=== PATIENT | female | born 1945 | race Caucasian/White ===

== ENCOUNTER 2019-04-19 06:15 | Inpatient (IN) | payer OTHER ==
[2019-04-06 13:35] LABS: HEMATOCRIT 43.2 % (37.0-47.0); HEMOGLOBIN 14.4 gm/dL (12.0-15.0); MCH 31.7 pg (26.0-34.0); MCHC 33.3 g/dL (28.0-37.0); RBC 4.55 mil/uL (4.20-5.00); RDW 13.2 % (10.5-14.5); WBC 6.5 thou/uL (4.0-11.0)
[2019-04-06 13:37] LABS: URINE BILIRUBIN NEGATIVE (Negative); URINE BLOOD NEGATIVE (Negative); URINE CLARITY CLEAR; URINE COLOR YELLOW; URINE GLUCOSE-RANDOM* NEGATIVE (Negative); URINE KETONES NEGATIVE (Negative); URINE NITRITE-REFLEX NEGATIVE (Negative); URINE PROTEIN (DIPSTICK) NEGATIVE (Negative); URINE SPECIFIC GRAVITY 1.015 (1.005-1.035); URINE UROBILINOGEN 0.2 E.U./dl (0.2-1.0)
[2019-04-06 13:38] LABS: URINE LEUKOCYTES-REFLEX 1+ (Negative)
[2019-04-06 13:43] LABS: ALBUMIN 3.8 g/dL (3.4-5.0); CALCIUM 9.1 mg/dL (8.5-10.1); CREATININE 0.7 mg/dL (0.6-1.0); POTASSIUM 4.1 mmol/L (3.5-5.1)
[2019-04-06 13:49] LABS: PROTIME 9.9 Seconds (9.3-11.4)
[2019-04-06 13:50] LABS: SQUAMOUS 0-3 Few /LPF (0-3)
[2019-04-06 13:51] LABS: URINE WBC-REFLEX 0-5 Rare /HPF (0-5)
[2019-04-06 13:52] LABS: BACTERIA-REFLEX 1-9 Few /HPF (None Seen); CASTS None Seen /LPF (None Seen); CRYSTALS None Seen /LPF (None Seen); URINE RBC 0-2 Rare /HPF (0-2)
--- NOTE | 2019-04-08 17:09 | EKG ---
[address] [address] ELECTROCARDIOGRAM REPORT Name: JASON COTTO Room #: PRE IN [facility]#: [id number] Admission: Attend Phys: Riley Thompson MD Discharge: Date of : 47 Report #: [id number] THIS REPORT FOR: //name// [facility] Test Date: 2019-04-06 Test Time: 12:59:03 Pat Name: JASON COTTO Department: Room: Gender: F Deputy Court: Nathen DUMNOT : 1945 Requested By: Riley Thompson Order Number: [id number] MD: Umang Bryant Measurements Intervals [place] Rate: 68 P: 66 ND: 157 QRS: 39 QRSD: 88 T: 47 QT: 383 QTc: 408 Interpretive Statements Sinus rhythm No previous ECG available for comparison Electronically Signed On 04-08-2019 17:09:10 [employer]PERVIS[employer] by Umang Bryant [email or web address] <ELECTRONICALLY SIGNED> By: Umang Bryant MD 04/08/19 1709 [id number] [id number] Umang Bryant MD /LEXX
[~2019-04-19] VITALS: Ht 154.9 cm; Wt 70.3 kg
[2019-04-19] VITALS (9 sets, daily range): BP systolic 114–145; BP diastolic 52–80
--- NOTE | ~2019-04-19 | O ---
[facility] [place] [address] OPERATIVE REPORT Name: JASON COTTO Room #: 444-P [facility] IN M.R.#: [id number] Admission: 04/19/19 Attend Phys: Riley Thompson MD Discharge: Date of : 47 Report #: [id number] THIS REPORT FOR: //name// CC: Andrew Thompson DATE OF SERVICE: 04/19/2019 PREOPERATIVE DIAGNOSIS: Left hip osteoarthritis. POSTOPERATIVE DIAGNOSIS: Left hip osteoarthritis. PROCEDURE: Left total hip arthroplasty. SURGEON: Riley Thompson MD. EMERGENCY MANAGEMENT SYSTEM DIRECTOR: Natalie Tavarez PA-C. INDICATIONS FOR EMERGENCY MANAGEMENT SYSTEM DIRECTOR: Throughout the case, extensive retraction and manipulation of the hip including dislocation and reduction was required. This was afforded to me by my children's nursery assistant. ANESTHESIA: General. IMPLANTS: [employer]hew size 11 high offset Synergy press fit stem, a size 50 R3 acetabular cup with 1 acetabular screw and a size 32, -3 cobalt chrome head. ESTIMATED BLOOD LOSS: 100 mL. COMPLICATIONS: None. SPECIMENS: None. CONDITION UPON LEAVING THE OPERATING ROOM: Stable. INDICATIONS FOR PROCEDURE: The patient is a 74-year-old female with left hip osteoarthritis. She had failed conservative measures for this and after discussion with her, she elected for left total hip arthroplasty. DESCRIPTION OF PROCEDURE: Risks, benefits, alternatives, complications were discussed in detail with the patient including but not limited to risk of anesthesia, risk of damage to nerves, arteries, blood vessels, risk for infection, bleeding, risk for continued hip pain, leg length discrepancy, instability and need for reoperation. Informed consent was obtained from the patient. Left hip was appropriately marked in the preoperative holding area. [facility] [address] [place] [address] OPERATIVE REPORT Name: JASON COTTO Tashia Room #: 444-P ADM IN M.R.#: [id number] Admission: 04/19/19 Attend Phys: Riley Thompson MD Discharge: Date of : 47 Report #: [id number] Ancef was given for preoperative antibiotics. She was brought to the operating room and placed in supine position on operating room table. General anesthesia was induced without complication. She was then placed in the right lateral decubitus position with left hip uppermost. Left hip and lower extremity were prepped and draped in normal sterile fashion. Timeout was performed, properly identifying the patient and procedure as well as the instrumentation and implants. All in the operating room were in agreement. Standard posterior approach to the left hip was made with 10 blade through the skin. Dissection was taken down to the fascia with Bovie cautery. Benitez elevator was used to clean off the fascia. Fresh 10 blade was used to make a fascial incision. This was taken proximally and distally with curved Ramírez scissor. Charnley retractor was placed. Trochanteric bursa was taken down with Bovie cautery. Piriformis tendon was identified, tagged and taken down with Bovie cautery. Capsulotomy was made and capsule ends were tagged for later repair. Hip was dislocated. There was extensive osteoarthritic change of the femoral head. Femoral neck cut was made 1 cm proximal to lesser trochanter based on preoperative templating. Femoral head was removed. Deep acetabular retractors were placed. Labrum was removed sharply. Pulvinar was removed with Bovie cautery. Acetabulum was then sequentially reamed up to a size 50, at which point there was excellent bleeding cancellous bone. A size 49 trial cup was placed, found to have a good fit. A final size 50 R3 acetabular cup was then placed and seated. One acetabular screw was placed for backup fixation and a polyethylene liner for 32 head was placed. Attention was then turned to the femur. This was reamed and broached up to a size 11, at which point the size 11 broach was stable. It was trialed with a high offset neck and a 32, +0 head. Hip was reduced, taken through range of motion, found to be stable, found to be somewhat long on the left compared to the right. It was felt we could make up for this with the final implant. Hip was dislocated. The broach was removed and final size 11 high offset Synergy press fit stem was placed and seated. This was then trialed with a 32, -3 head. Hip was reduced, taken through range of motion, found to be stable, found to have equal leg lengths. Hip was dislocated one last time and a final size 32, -3 cobalt chrome head was placed. Hip was reduced, taken through range of motion, found to be stable, found to have equal leg length, placed deep in the joint. Capsule and piriformis were repaired with 0 FiberWire ____ postoperatively. By: [id number] Riley Thompson MD /nt
[~2019-04-19 06:15] MED LIST: ADVIL200 M1 PO; CALCIUM CARBON600 MG PO; CENTRUM SILVER1 EAC4 PO; COZAAR 25 MG TA25 M1 PO; FIBER500 MG PO; FOSAMAX 70 MG T70 MG PO
--- NOTE | 2019-04-19 14:45 | NUR ---
INITIAL ASSESSMENT: Pt evaluated for d/c planning needs. Reviewed chart and spoke with nurse, PT and pt. Pt is alert and oriented. Pt states she lives alone in house and was independent with ADL's prior to admission to the hospital. Pt has walker, CPAP and stool riser at home. Pt has not had home health in the past. Pt plans on returning home on d/c from hospital. Pt's sister will stay with her on d/c. Pt has outpatient PT arranged at [facility] in [place]. Will remain available to assist as needed.
--- NOTE | 2019-04-19 20:01 | NUR ---
Pt came to unit from PACU approx 1325. Dressing on left hip c/d/i. Pain controlled. IVF started. IV antibiotic infused. Pt able to work with physical therapy and go the chair. Pt able to ambulate with gait-belt and walker to the toilet. Came to unit with 2L O2 but RT dicontinued O2. Call light within reach. Fall precautions in place. Report given to shakir SELLERS.
[2019-04-20 03:20] VITALS: BP 110/57
--- NOTE | 2019-04-20 04:50 | NUR ---
ASSUMED PT CARE AT 1900. PT REPORTS MINIMAL PAIN, PAIN MEDS GIVEN. LEFT HIP DRESSING DRY AND INTACT WITH ICE PACK IN PLACE. UP TO TOILET, STEADY ON FEET. ANTIBIOTICS AND FLUIDS INFUSING PER ORDERED. SLEEPING CURRENTLY WITH CIPAP ON.
[2019-04-20 05:34] LABS: HEMATOCRIT 32.6 % (37.0-47.0); HEMOGLOBIN 10.8 gm/dL (12.0-15.0); MCHC 33.2 g/dL (28.0-37.0); MCV 96.3 fL (80.0-100.0); RBC 3.39 mil/uL (4.20-5.00); RDW 13.2 % (10.5-14.5); WBC 7.1 thou/uL (4.0-11.0)
[2019-04-20 07:48] VITALS: BP 102/58
[2019-04-20 07:50] VITALS: BP 102/58
[2019-04-20] MEDS ORDERED: NEURONTIN 300300 M1 PO (11:52)
--- NOTE | 2019-04-20 12:52 | NUR ---
Assumed care of pt at 0700. Pt a&ox4. Dressing c/d/i. Pain controlled. JUNIE echevarria and SCDs in place. Cpap at night. Worked with physical therapy today. Will discharge this afternoon. Fall precautions in place. Will continue to monitor.
[2019-04-20 13:50] VITALS: BP 102/58
--- NOTE | 2019-04-20 14:25 | NUR ---
PATIENT SHOWED GREAT PROGRESSION POST OP LEFT HIP REPLACEMENT SURGERY. PHYSICAL THERAPY WAS SUCCESSFUL. PATIENT WAS AMBULATING WITH WALKER WITH EASE. ICE PACK WAS APPLIED TO LEFT HIP INCISION. IS GETTING DISCHARGED TODAY. AWAITING FOR DISCHARGE INSTRUCTIONS AND FOR LEFT HAND REMOVAL OF IV.
--- NOTE | 2019-04-20 14:54 | NUR ---
I have reviewed and concur with student documentation.
== END 2019-04-20 15:12 | disposition home or self-care (01) | DRG 470 ==
LOC: PRE 06:15 → TBA 08:18 → 4S 08:18 → PRE 11:09 → 4S 13:28 → PRE 16:34 → ENTRNSPT 04-20 14:53 → EDTRNSPTSTS 04-20 14:57 → 4S 04-20 15:12
PROVIDERS: ADMIT Orthopaedic Surgery
PROC: 0SRB02A Replacement of Left Hip Joint with Metal on Polyethylene Synthetic Substitute, Uncemented, Open Approach (ICD-10-PCS; principal; 2019-04-19)
DX: M16.12 Unilateral primary osteoarthritis, left hip (principal); I10 Essential (primary) hypertension; Z96.641 Presence of right artificial hip joint; E66.3 Overweight; G56.01 Carpal tunnel syndrome, right upper limb; Z91.011 Allergy to milk products; Z79.899 Other long term (current) drug therapy; Z68.29 Body mass index [BMI] 29.0-29.9, adult
CPT/HCPCS: 10102; 50010; 50101; 50382; 50414; 51412; 53000; 53078; 53367; 56524; 56528; 56530; 57095; 57103